=== PATIENT | male | born 1995 | race Caucasian/White ===

== ENCOUNTER 2018-10-16 21:34 | Emergency (ER) | payer SELFPAY ==
[~2018-10-16] VITALS: Ht 182.9 cm; Wt 86.2 kg
[2018-10-16 21:39] VITALS: Ht 182.9 cm; Wt 86.2 kg
[2018-10-17 01:34] VITALS: BP 127/65
== END 2018-10-17 01:34 | disposition home or self-care (01) ==
LOC: ED 21:34
DX: S53.105A Unspecified dislocation of left ulnohumeral joint, initial encounter (principal); S62.102A Fracture of unspecified carpal bone, left wrist, initial encounter for closed fracture; J45.909 Unspecified asthma, uncomplicated; X58.XXXA Exposure to other specified factors, initial encounter; Y93.89 Activity, other specified; Y92.89 Other specified places as the place of occurrence of the external cause; Y99.8 Other external cause status
CPT/HCPCS: J2270; J2704; Q0092